=== PATIENT | male | born 1980 | race Caucasian/White ===

== ENCOUNTER 2018-12-18 11:08 | Day surgery (SDC) | payer OTHER ==
--- NOTE | 2018-12-16 19:26 | HP ---
Date/Time of Note Date/Time of Note DATE: 12/16/18 TIME: 19:14 Assessment/Plan VTE Prophylaxis SCD applied (from Ns): Yes SCD contraindicated: low risk/ambulating Pharmacological prophylaxis: NA/contraindicated Pharm contraindication: low risk/ambulating Lines/Catheters IV [facility] Saline Lock Central line still needed: No Urinary Cath still in place: No Assessment/Plan Hospital Course The patient will be admitted to same day surgery and undergo a laparoscopic right inguinal hernia repair. Problems: (1) Inguinal hernia Status: Chronic Qualifiers: Obstruction and gangrene presence: without obstruction or gangrene Laterality: unilateral Recurrence: non-recurrent Qualified Codes: K40.90 - Unilateral inguinal hernia, without obstruction or gangrene, not specified as recurrent Assessment/Plan The patient has a right inguinal hernia. We have reviewed the pathology of the disease process. He understands the risk of nonoperative management includes but not exclusive to small bowel obstruction. We have reviewed the risk of surgery to include but not exclusive to: Bleeding, infection, recurrence, chronic pain syndrome with pain lasting beyond 7 months. Risks also include: Laparotomy, damage to bowel or bladder, loss of testicle, scar, and placement of mesh. The patient understands that mesh will be placed. After some discussion the clinic patient requested proceed with a laparoscopic right inguinal hernia repair. HPI/ROS Admit Date/Time Admit Date/Time 12/17/2018 Hx of Present Illness This is a 38-year-old male he presented to clinic complaining of a large right inguinal hernia. He's had a hernia since 2015. The hernia is easily reducible. It is painful at times. He does not have a left inguinal hernia. After some discussion the patient requested to proceed with a laparoscopic internal hernia repair. ROS Constitutional: no complaints, improved ENT: no complaints, other (Difficulty with hear, wears a hearing aid) Respiratory: no complaints Cardiovascular: no complaints Gastrointestinal: no complaints Musculoskeletal: no complaints Skin: no complaints Neurologic: no complaints Lymphatic: other (Patient states that he has posttraumatic stress disorder. Also bipolar and borderline schizophrenia. He is to take Prozac does not take it.) PMH/Family/Social Social History Smoking Status: Current every day smoker Exam/Review of Systems Exam Constitutional: alert, oriented, well developed Psych: depression Head: normocephalic Eyes: nl conjunctiva, EOMI Neck: supple Respiratory: clear to auscultation, normal air movement Cardiovascular: regular rate and rhythm, nl pulses Gastrointestinal: nl liver, spleen, non-tender, other (Patient's abdominal wall is flat, healthy. He has an easily reducible moderate size right inguinal hernia. No left-sided hernia. 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 Dec 16, 2018 19:26
[~2018-12-18] VITALS: Ht 177.8 cm; Wt 95.0 kg
[2018-12-18] VITALS (37 sets, daily range): BP systolic 92–133; BP diastolic 35–82; PULSE 72–89; RESP 12–24; Ht 177.8 cm; Wt 95.0 kg
[~2018-12-18 11:08] MED LIST: CEFAZOLIN 1 GM INJ ONE; CEFAZOLIN 2 GM/50 ML (PMX) 50 ML IVPB ONE
[2018-12-18] MEDS ORDERED: POLYMYXIN/BACITRACIN 1L IRRIG ONE (11:42)
[2018-12-18] MEDS ORDERED: BUPIVACAINE 0.25% (MPF) 30 ML INJ ONE (11:42)
--- NOTE | 2018-12-18 12:19 | HPN ---
Date/Time of Note Date/Time of Note DATE: 12/18/18 TIME: 12:19 Interval H&P Admission Note Pt. seen H&P reviewed: No system changes CARL NEUMANN M.D. Dec 18, 2018 12:19
--- NOTE | 2018-12-18 12:23 | PREAC ---
Date/Time of Note Date/Time of Note DATE: 12/18/18 TIME: 12:23 Anesthesia Eval and Record Evaluation Time Pre-Procedure Interview DATE: 12/18/18 TIME: 12:23 Age 38 Sex male NPO: 8 hrs Preoperative diagnosis Right inguinal hernia Planned procedure Laparoscopic hernia repair with mesh Past Medical History Past Medical History: Includes Pulm: Smoking Hx Surgery & Anesthesia Issues No known issue Meds Anticoagulation: No Beta Lisa within 24 hr: No Reason Beta Lisa not given: Pt. not on B-Lisa No Active Prescriptions or Reported Meds Meds reviewed: Yes Allergies Coded Allergies: No Known Allergy (Unverified , 12/18/18) Allergies Reviewed: Yes Labs/Studies Labs Reviewed: Reviewed by anesthesiologist test: N/A Pre-procedure Exam Airway: Adequate mouth opening Mallampati: Mallampati I Teeth: Normal Lung: Normal Heart: Normal ASA Physical Status ASA physical status: 2 Emergency: None Planned Anesthetic General/MAC: ETT Planned Pain Management Parenteral pain med Pre-operative Attestations Prior to commencing anesthesia and surgery, the patient was re-evaluated, there was verification of: *The patient's identity *The results of appropriate recent lab work and preoperative vital signs *The above evaluation not changing prior to induction *Anesthetic plan, risk benefits, alternative and complications discussed with patient/family; questions answered; patient/family understands, accepts and wishes to proceed. ES LOPES MD Dec 18, 2018 12:23
[2018-12-18] MEDS ORDERED: LIDOCAINE 2% (SDV) 5 ML INJ ONE (12:31)
[2018-12-18] MEDS ORDERED: NEOSTIGMINE 3 MG/3 ML SYRINGE ONE ×2 (12:31→12:53)
[2018-12-18] MEDS ORDERED: SUCCINYLCHOLINE CHLORIDE 100 MG/5 ML SYG IV ONE (12:31)
[2018-12-18] MEDS ORDERED: PROPOFOL 20 ML ONE (12:31)
[2018-12-18] MEDS ORDERED: GLYCOPYRROLATE 0.4 MG INJ ONE ×3 (12:31→12:54)
[2018-12-18] MEDS ORDERED: ROCURONIUM 50 MG INJ ONE (12:31)
[2018-12-18] MEDS ORDERED: MEPERIDINE 100 MG INJ ONE (12:32)
[2018-12-18] MEDS ORDERED: OXYCODONE/ACETAMINOPHEN (5/325) TAB PO PRN ×2 (13:30)
[2018-12-18] MEDS ORDERED: FENTAnyl 50 MCG/ML VIAL IV PRN ×3 (13:30)
[2018-12-18] MEDS ORDERED: METOCLOPRAMIDE 10 MG INJ IV PRN (13:30)
[2018-12-18] MEDS ORDERED: MIDAZOLAM 1 MG/ML 2 ML INJ IV PRN (13:30)
[2018-12-18] MEDS ORDERED: HYDROmorphONE 1 MG/5 ML IV SYRINGE IV PRN ×3 (13:30)
[2018-12-18] MEDS ORDERED: MEPERIDINE 25 MG INJ IV PRN (13:30)
[2018-12-18] MEDS ORDERED: ONDANSETRON 4 MG INJ IV PRN (13:30)
[2018-12-18] MEDS ORDERED: DIPHENHYDRAMINE 50 MG INJ IV PRN (13:30)
--- NOTE | 2018-12-18 14:54 | OPR ---
Date/Time of Note Date/Time of Note DATE: 12/18/18 TIME: 14:42 Operative Report Procedure Date: Dec 18, 2018 Preoperative Diagnosis Right inguinal hernia Postoperative Diagnosis Right inguinal hernia large indirect. Operation/Procedure Performed Laparoscopic right inguinal hernia repair, TEP Procedure Surgeon Carl Campbell MD Train Control Technician None Second Train Control Technician: ES LOPES MD Anesthesia Type: general Estimated Blood Loss: minimal Transfusion none Specimen None Grafts/Implants Progrip laparoscopic hernia mesh Tubes/Drains None Complications none Pt Condition Post Procedure: stable Disposition: PACU Indications Is a 38-year-old male presents with a large right angle hernia. He requested repair using laparoscopic technique. He understands mesh will be placed. Procedure Description The patient was in the operating room. The patient was intubated and prepped and draped. A full timeout was performed. Initially local was infused in the area. Midline incision was made just below the umbilicus. Dissection continued down to the fascia just below the umbilicus. A small pavel was made in the fascia. The preperitoneal space was entered using blunt finger dissection. A balloon dissector was placed. It was slowly inflated. The epigastric vessels could be seen along the abdominal wall. The balloon once expanded remained expanded for approximately 2 minutes and then was deflated. The balloon was removed and the Guan trocar portion of the balloon inflated was inflated. A 10 mm 30 degree scope was used. Under direct visual technique two 5 mm trochars were placed in the midline. The following anatomical landmarks were identified: The pubic bone, the inferior epigastric vessels, the internal ring, the vas de ferens, the inguinal ligament, Petr's ligament. The entire myopectineal orifice could be seen. The external iliac arteries were covered with fat along with the nerves. The hernia was reduced. The vas deferens dissected free from the hernia sac. The spermatic vessels were dissected from the hernia sac. The peritoneal reflection was dissected back approximately 6 cm. Hemostasis was checked. Then a 10 x 15 piece of self gripping polypropylene mesh was placed in the field. It was spread out to cover the entire peritoneal orifice. Extending from the midline out laterally almost to the level of the umbilicus. Care was taken to ensure that the mesh did not go over the lip of the peritoneum resulting in folding when it was decompressed. Once a satisfactory position the mesh was held in place and the preperitoneal space was slowly deflated. Once that was completed I placed a Guan trocar in the abdomen. It insufflated the abdomen and checked the placement of mesh. It was lying flat completely coverin g the myopectineal space. There is no evidence of recurrence. The Guan trocar was removed and the abdomen was decompressed. The fascial defect was closed using a running 0 Vicryl suture. Care was taken not to involve any entered on the content closure. More local was infused in the wound. All wounds were closed with a 2 layer closure, a deep layer of interrupted 3-0 chromic suture with a superficial layer 4-0 Vicryl. Skin glue was used for dressing. Testicles were palpated in the scrotum at the end of the case. Sponge and needle count reported as correct at the end procedure. To note the patient had a large internal ring. Almost extending around the hypogastric vessels. No evidence of a true direct inguinal hernia. CARL CAMPBELL M.D. Dec 18, 2018 14:52
--- NOTE | 2018-12-18 15:25 | PAC ---
Date/Time of Note Date/Time of Note DATE: 12/18/18 TIME: 15:25 Post-Anesthesia Notes Post-Anesthesia Note Last documented vital signs Vital Signs Date Temp Pulse Resp B/P (MAP) Pulse Ox O2 O2 Flow FiO2 Time Delivery Rate 12/18/18 84 13 99/57 (71) 96 Room Air 15:17 12/18/18 98.1 14:52 Activity: WNL Respiratory function: WNL Cardiovascular function: WNL Mental status: Baseline Pain reasonably controlled: Yes Hydration appropriate: Yes Nausea/Vomiting absent: Yes Comments BT: 98.3 ES LOPES MD Dec 18, 2018 15:25
== END 2018-12-18 20:40 | disposition home or self-care (01) ==
LOC: SDS 11:08
PROVIDERS: ATTEND Surgery Trauma Surgery
DX: K40.90 Unilateral inguinal hernia, without obstruction or gangrene, not specified as recurrent (principal); Z87.891 Personal history of nicotine dependence
CPT/HCPCS: 49650; J0690; J1170; J2175; J2250; J2405; J2710; J3010; Z7512; Z7610